=== PATIENT | female | born 1965 | race African-American/Black ===

== ENCOUNTER 2021-03-06 17:40 | Inpatient (IN) | payer BC, OTHER ==
[~2021-03-06] VITALS: Ht 172.7 cm; Wt 87.2 kg
[~2021-03-06 17:40] MED LIST: ALBUTEROL; AMLODIPINE; FLONASE; NAPROXEN; SINGULAIR; VASOTEC; ZYRTEC
[2021-03-06] MEDS ORDERED: METHYLPREDNISOLONE SOD SUCC 125 MG/2 ML VIAL IV STA (17:59)
[2021-03-06] MEDS ORDERED: IPRATROPIUM BROMIDE (0.02%) 0.5MG/2.5ML NEB HHN STA (17:59)
[2021-03-06] MEDS ORDERED: ALBUTEROL (0.083%) 2.5MG/3ML NEB HHN STA (17:59)
[2021-03-06] MEDS ORDERED: MAGNESIUM 2 G PREMIX 50 ML IV STA (17:59)
[2021-03-06] MEDS ORDERED: CEFTRIAXONE 1 G PREMIX 50 ML IV ONE (18:15)
[2021-03-06] MEDS ORDERED: AZITHROMYCIN 500 MG in DEXT 5% WATER 250 ML IV STA (18:15)
[2021-03-06 18:21] LABS: BASOPHILS % 0.5 % (0.0-2.0); EOSINOPHILS % 0.2 % (0.0-5.0); HEMATOCRIT. 28.1 % (36.0-48.0); HEMOGLOBIN. 9.2 g/dL (12.0-16.0); LYMPHOCYTES % 20.9 % (20.0-50.0); MEAN CORPUSCULAR HEMOGLOBIN 30.4 pg (28.0-32.0); MEAN CORPUSCULAR VOLUME 92.9 fL (81.0-99.0); MEAN PLATELET VOLUME 7.9 fl (7.4-10.4); MONOCYTES % 5.7 % (2.0-8.0); NEUTROPHILS % 72.7 % (40.0-76.0); PLATELET 238 x1000/uL (130-400); RED BLOOD CELL COUNT 3.02 mill/uL (4.2-5.4); RED CELL DISTRIBUTION WIDTH 15.7 % (11.6-14.6)
[2021-03-06 18:28] LABS: CHLORIDE 105 mEq/L (98-107)
[2021-03-06 18:32] LABS: D-DIMER 2.05 mg/L FEU (<0.50); PROTHROMBIN TIME 10.9 sec (9.6-11.0)
[2021-03-06] MEDS ORDERED: FUROSEMIDE 20MG/2ML VIAL IVP ONE (19:00)
[2021-03-06 19:31] LABS: BG BASE EXCESS -3.1 mmol/L (-2.0-2.0); BG CARBOXYHEMOGLOBIN 0.3 % (0.5-1.5); BG DEOXYHEMOGLOBIN 1.7 % (0.0-5.0); BG FRACTION INSPIRED OXYGEN 50; BG HCO3 ACT 19.1 mmol/L (22.0-26.0); BG METHEMOGLOBIN 0.2 % (0.0-1.5); BG OXYGEN SATURATION 98.3 % (92.0-98.5); BG OXYHEMOGLOBIN 97.8 % (94.0-97.0); BG PH 7.501 (7.350-7.450); BG TOTAL HEMOGLOBIN 9.5 g/dL (12.0-18.0); BG VENT MODE MASK - BIPAP
[2021-03-06 19:58] LABS: CLARITY URINE CLEAR (CLEAR); COLOR URINE YELLOW (YELLOW); KETONES URINE NEGATIVE (NEGATIVE); LEUKOCYTE ESTERASE URINE NEGATIVE (NEGATIVE); NITRITE URINE NEGATIVE (NEGATIVE); OCCULT BLOOD URINE NEGATIVE (NEGATIVE); PH URINE 5.5 (4.5-8.0); PROTEIN URINE 2+ (NEGATIVE); SPECIFIC GRAVITY URINE 1.015 (1.005-1.030); UROBILINOGEN URINE 0.2 E.U./dL (0.2-1.0)
[2021-03-06 22:19] VITALS: BP 176/49
[2021-03-06 22:30] VITALS: BP 161/91
[2021-03-06 22:31] VITALS: BP 161/91
[2021-03-06] MEDS ORDERED: HYDROCODONE/ACETAMINOPHEN 5/325MG TABLET PO PRN (23:15)
[2021-03-06] MEDS ORDERED: DEXTROSE 50% WATER 50ML SYRINGE IV PRN (23:15)
[2021-03-07] VITALS (9 sets, daily range): BP systolic 148–179; BP diastolic 75–97
[2021-03-07] MEDS: IPRATROPIUM/ALBUTEROL 0.5-3(2.5)MG/3ML NEB HHN SCH ×5 (00:16→21:21)
[2021-03-07] MEDS: CLONIDINE 0.1MG TABLET PO PRN (05:33)
[2021-03-07 05:48] LABS: BASOPHILS % 0.1 % (0.0-2.0); HEMATOCRIT. 27.8 % (36.0-48.0); HEMOGLOBIN. 8.9 g/dL (12.0-16.0); LYMPHOCYTES % 9.1 % (20.0-50.0); MEAN CORPUSCULAR HEMOGLOBIN 30.5 pg (28.0-32.0); MEAN CORPUSCULAR VOLUME 95.2 fL (81.0-99.0); MEAN PLATELET VOLUME 8.6 fl (7.4-10.4); MONOCYTES % 2.4 % (2.0-8.0); NEUTROPHILS % 88.4 % (40.0-76.0); PLATELET 225 x1000/uL (130-400); RED BLOOD CELL COUNT 2.92 mill/uL (4.2-5.4); RED CELL DISTRIBUTION WIDTH 16.1 % (11.6-14.6)
[2021-03-07] MEDS: BLOOD SUGAR DIAGNOSTIC STRIP TEST SCH ×4 (05:49→21:12)
[2021-03-07] MEDS: INSULIN LISPRO 100 UNITS/ML SUBCUT SCH ×4 (06:13→21:11)
[2021-03-07] MEDS ORDERED: CEFTRIAXONE 1 G PREMIX 50 ML IV SCH (07:45)
[2021-03-07] MEDS: ACYCLOVIR 400 MG TABLET PO SCH ×2 (08:42→18:20)
[2021-03-07] MEDS: TACROLIMUS 1MG CAPSULE PO SCH ×2 (08:42→18:23)
[2021-03-07] MEDS: FLUTICASONE PROPIONATE 50MCG/SPRAY BOTTLE BOTHNSTRLS SCH (08:42)
[2021-03-07] MEDS: FAMOTIDINE 20MG TABLET PO SCH ×2 (08:42→21:12)
[2021-03-07] MEDS: MYCOPHENOLATE MOFETIL 500MG TABLET PO SCH ×2 (08:43→21:12)
[2021-03-07] MEDS: FOLIC ACID 1MG TABLET PO SCH (08:43)
[2021-03-07] MEDS: ENOXAPARIN 40MG/0.4ML SYR SUBCUT SCH (08:44)
[2021-03-07] MEDS: PYRIDOXINE HCL 50MG TABLET PO SCH (08:44)
[2021-03-07] MEDS: CETIRIZINE 10MG TABLET PO SCH (08:44)
[2021-03-07] MEDS ORDERED: PREDNISONE 10MG TABLET PO SCH (09:00)
[2021-03-07] MEDS ORDERED: CARVEDILOL 3.125 MG TABLET PO SCH (09:00)
[2021-03-07] MEDS ORDERED: FUROSEMIDE 40MG/4ML VIAL IVP SCH (09:00)
[2021-03-07] MEDS ORDERED: INSULIN GLARGINE UD 100 UNITS/ML SYR SUBCUT SCH (10:00)
[2021-03-07] MEDS: CEFTRIAXONE 1,000 MG in DEXTROSE 5% WATER 50 ML IV SCH (10:30)
[2021-03-07] MEDS ORDERED: LOSARTAN POTASSIUM 50 MG TABLET PO SCH (11:00)
[2021-03-07] MEDS ORDERED: SIRO2TAB MT (11:01)
[2021-03-07] MEDS ORDERED: DIPH1TAB24 MT (11:01)
[2021-03-07] MEDS ORDERED: ENAL10TA19 PO (11:01)
[2021-03-07] MEDS ORDERED: FLUT1BLS3 INH (11:01)
[2021-03-07] MEDS ORDERED: MONT10TA32 MT (11:01)
[2021-03-07] MEDS ORDERED: ONDA8TAB59 PO (11:01)
[2021-03-07] MEDS ORDERED: POTA8TAB4 PO (11:01)
[2021-03-07] MEDS ORDERED: NAPR-681 MT (11:01)
[2021-03-07] MEDS: METHYLPREDNISOLONE SOD SUCC 40 MG/ML VIAL IV SCH ×2 (13:42→21:13)
[2021-03-07] MEDS: ENALAPRIL 5MG TABLET PO SCH (13:43)
[2021-03-07] MEDS: MONTELUKAST SODIUM 10MG TABLET PO SCH (18:20)
[2021-03-07] MEDS ORDERED: DIPHENHYDRAMINE 50MG CAPSULE PO PRN (19:45)
[2021-03-07] MEDS: AZITHROMYCIN 500 MG in DEXT 5% WATER 250 ML IV SCH (20:06)
[2021-03-07] MEDS: CLONIDINE 0.2MG TABLET PO SCH (23:24)
[2021-03-08] VITALS (12 sets, daily range): BP systolic 138–162; BP diastolic 71–95
[2021-03-08] MEDS: IPRATROPIUM/ALBUTEROL 0.5-3(2.5)MG/3ML NEB HHN SCH ×6 (00:43→20:14)
[2021-03-08] MEDS: METHYLPREDNISOLONE SOD SUCC 40 MG/ML VIAL IV SCH ×3 (05:23→21:28)
[2021-03-08] MEDS: CLONIDINE 0.2MG TABLET PO SCH ×3 (05:23→21:29)
[2021-03-08 06:18] LABS: BASOPHILS % 0.2 % (0.0-2.0); HEMATOCRIT. 25.1 % (36.0-48.0); HEMOGLOBIN. 8.2 g/dL (12.0-16.0); LYMPHOCYTES % 8.2 % (20.0-50.0); MEAN CORPUSCULAR HEMOGLOBIN 30.9 pg (28.0-32.0); MEAN CORPUSCULAR VOLUME 95.1 fL (81.0-99.0); MEAN PLATELET VOLUME 8.6 fl (7.4-10.4); MONOCYTES % 3.8 % (2.0-8.0); NEUTROPHILS % 87.8 % (40.0-76.0); PLATELET 219 x1000/uL (130-400); RED BLOOD CELL COUNT 2.64 mill/uL (4.2-5.4); RED CELL DISTRIBUTION WIDTH 15.5 % (11.6-14.6)
[2021-03-08 06:24] LABS: PHOSPHORUS 3.5 mg/dL (2.5-4.9)
[2021-03-08] MEDS: BLOOD SUGAR DIAGNOSTIC STRIP TEST SCH ×4 (07:30→21:27)
[2021-03-08] MEDS: FLUTICASONE PROPIONATE 50MCG/SPRAY BOTTLE BOTHNSTRLS SCH (08:55)
[2021-03-08] MEDS: ENOXAPARIN 40MG/0.4ML SYR SUBCUT SCH (08:57)
[2021-03-08] MEDS: FAMOTIDINE 20MG TABLET PO SCH ×2 (08:58→21:28)
[2021-03-08] MEDS: MYCOPHENOLATE MOFETIL 500MG TABLET PO SCH ×2 (08:58→21:28)
[2021-03-08] MEDS: PYRIDOXINE HCL 50MG TABLET PO SCH (08:58)
[2021-03-08] MEDS: CETIRIZINE 10MG TABLET PO SCH (08:58)
[2021-03-08] MEDS: ENALAPRIL 5MG TABLET PO SCH (08:58)
[2021-03-08] MEDS: CEFTRIAXONE 1,000 MG in DEXTROSE 5% WATER 50 ML IV SCH (08:59)
[2021-03-08] MEDS: FOLIC ACID 1MG TABLET PO SCH (08:59)
[2021-03-08] MEDS: ACYCLOVIR 400 MG TABLET PO SCH ×3 (08:59→17:23)
[2021-03-08] MEDS: INSULIN LISPRO 100 UNITS/ML SUBCUT SCH ×4 (09:01→21:54)
[2021-03-08] MEDS: TACROLIMUS 1MG CAPSULE PO SCH ×2 (09:21→17:23)
[2021-03-08] MEDS: INSULIN GLARGINE UD 100 UNITS/ML SYR SUBCUT SCH (10:57)
[2021-03-08] MEDS: CLONIDINE 0.1MG TABLET PO PRN ×2 (14:30→14:31)
[2021-03-08] MEDS: MONTELUKAST SODIUM 10MG TABLET PO SCH (17:23)
[2021-03-08] MEDS: AZITHROMYCIN 500 MG in DEXT 5% WATER 250 ML IV SCH (21:28)
[2021-03-09] VITALS (12 sets, daily range): BP systolic 134–161; BP diastolic 65–91
[2021-03-09] MEDS: IPRATROPIUM/ALBUTEROL 0.5-3(2.5)MG/3ML NEB HHN SCH ×6 (00:26→21:04)
[2021-03-09] MEDS: METHYLPREDNISOLONE SOD SUCC 40 MG/ML VIAL IV SCH ×2 (05:23→17:35)
[2021-03-09] MEDS: CLONIDINE 0.2MG TABLET PO SCH ×3 (05:24→21:33)
[2021-03-09] MEDS: BLOOD SUGAR DIAGNOSTIC STRIP TEST SCH ×4 (07:30→21:33)
[2021-03-09] MEDS: INSULIN LISPRO 100 UNITS/ML SUBCUT SCH ×4 (08:46→22:03)
[2021-03-09] MEDS: TACROLIMUS 1MG CAPSULE PO SCH ×2 (08:50→17:37)
[2021-03-09] MEDS: FAMOTIDINE 20MG TABLET PO SCH ×2 (08:50→21:33)
[2021-03-09] MEDS: CETIRIZINE 10MG TABLET PO SCH (08:50)
[2021-03-09] MEDS: FOLIC ACID 1MG TABLET PO SCH (08:50)
[2021-03-09] MEDS: MYCOPHENOLATE MOFETIL 500MG TABLET PO SCH ×2 (08:51→21:32)
[2021-03-09] MEDS: PYRIDOXINE HCL 50MG TABLET PO SCH (08:51)
[2021-03-09] MEDS: ACYCLOVIR 400 MG TABLET PO SCH ×3 (08:52→17:37)
[2021-03-09] MEDS: CEFTRIAXONE 1,000 MG in DEXTROSE 5% WATER 50 ML IV SCH (09:20)
[2021-03-09] MEDS: ENOXAPARIN 40MG/0.4ML SYR SUBCUT SCH (09:21)
[2021-03-09] MEDS: FLUTICASONE PROPIONATE 50MCG/SPRAY BOTTLE BOTHNSTRLS SCH (09:21)
[2021-03-09] MEDS: ENALAPRIL 5MG TABLET PO SCH (09:54)
[2021-03-09] MEDS: INSULIN GLARGINE UD 100 UNITS/ML SYR SUBCUT SCH (09:56)
[2021-03-09] MEDS ORDERED: MAGNESIUM HYDROXIDE 400MG/5ML 30ML UDC PO PRN (11:15)
[2021-03-09] MEDS ORDERED: MAGNESIUM HYDROXIDE 400MG/5ML 30ML UDC PO NR (11:15)
[2021-03-09] MEDS ORDERED: INSULIN GLARGINE UD 100 UNITS/ML SYR SUBCUT NR (12:00)
[2021-03-09] MEDS: CLONIDINE 0.1MG TABLET PO PRN ×2 (13:23→16:08)
[2021-03-09] MEDS: SIROLIMUS 1 MG TABLET PO SCH (17:36)
[2021-03-09] MEDS: DOCUSATE SODIUM 100MG CAPSULE PO SCH (17:36)
[2021-03-09] MEDS: MONTELUKAST SODIUM 10MG TABLET PO SCH (17:56)
[2021-03-09] MEDS: AZITHROMYCIN 500 MG in DEXT 5% WATER 250 ML IV SCH (21:32)
[2021-03-10] VITALS (8 sets, daily range): BP systolic 142–168; BP diastolic 72–84
[2021-03-10] MEDS: IPRATROPIUM/ALBUTEROL 0.5-3(2.5)MG/3ML NEB HHN SCH ×3 (00:43→09:15)
[2021-03-10] MEDS: METHYLPREDNISOLONE SOD SUCC 40 MG/ML VIAL IV SCH ×2 (05:55→18:11)
[2021-03-10] MEDS: CLONIDINE 0.2MG TABLET PO SCH ×3 (05:55→20:55)
[2021-03-10 06:43] LABS: HEMATOCRIT. 25.8 % (36.0-48.0); HEMOGLOBIN. 8.5 g/dL (12.0-16.0); MEAN CORPUSCULAR HEMOGLOBIN 31.1 pg (28.0-32.0); MEAN CORPUSCULAR VOLUME 94.2 fL (81.0-99.0); MEAN PLATELET VOLUME 8.4 fl (7.4-10.4); PLATELET 285 x1000/uL (130-400); RED BLOOD CELL COUNT 2.74 mill/uL (4.2-5.4); RED CELL DISTRIBUTION WIDTH 15.3 % (11.6-14.6)
[2021-03-10] MEDS: BLOOD SUGAR DIAGNOSTIC STRIP TEST SCH ×4 (07:30→20:32)
[2021-03-10] MEDS: CEFTRIAXONE 1,000 MG in DEXTROSE 5% WATER 50 ML IV SCH (09:48)
[2021-03-10] MEDS: TACROLIMUS 1MG CAPSULE PO SCH ×2 (09:48→18:12)
[2021-03-10] MEDS: FAMOTIDINE 20MG TABLET PO SCH ×2 (09:49→20:28)
[2021-03-10] MEDS: MYCOPHENOLATE MOFETIL 500MG TABLET PO SCH ×2 (09:49→20:28)
[2021-03-10] MEDS: ACYCLOVIR 400 MG TABLET PO SCH ×3 (09:49→18:11)
[2021-03-10] MEDS: CETIRIZINE 10MG TABLET PO SCH (09:49)
[2021-03-10] MEDS: PYRIDOXINE HCL 50MG TABLET PO SCH (09:49)
[2021-03-10] MEDS: FOLIC ACID 1MG TABLET PO SCH (09:49)
[2021-03-10] MEDS: DOCUSATE SODIUM 100MG CAPSULE PO SCH ×2 (09:50→18:11)
[2021-03-10] MEDS: ENOXAPARIN 40MG/0.4ML SYR SUBCUT SCH (09:51)
[2021-03-10] MEDS: INSULIN LISPRO 100 UNITS/ML SUBCUT SCH ×4 (09:55→20:31)
[2021-03-10] MEDS ORDERED: INSULIN GLARGINE UD 100 UNITS/ML SYR SUBCUT SCH (10:00)
[2021-03-10] MEDS ORDERED: INSULIN GLARGINE UD 100 UNITS/ML SYR SUBCUT NR ×2 (10:30→11:45)
[2021-03-10] MEDS ORDERED: METFORMIN HCL 500MG TABLET PO NR (11:15)
[2021-03-10] MEDS ORDERED: FLUTICASONE PROPIONATE 50MCG/SPRAY BOTTLE BOTHNSTRLS SCH (11:15)
[2021-03-10] MEDS: POTASSIUM CHLORIDE 20MEQ TABLET SR PO SCH ×2 (11:35→15:23)
[2021-03-10] MEDS: MONTELUKAST SODIUM 10MG TABLET PO SCH (11:36)
[2021-03-10] MEDS: ENALAPRIL 5MG TABLET PO SCH (11:51)
[2021-03-10 12:00] LABS: NUCLEATED RED BLOOD CELLS 6 /100 WBC; PLATELET ESTIMATE NORMAL
[2021-03-10] MEDS: IPRATROPIUM/ALBUTEROL 0.5-3(2.5)MG/3ML NEB HHN PRN ×2 (12:37→16:08)
[2021-03-10] MEDS: TRELEGY ELLIPTA ORI SCH (13:20)
[2021-03-10] MEDS: FLUTICASONE PROPIONATE 50MCG/SPRAY BOTTLE BOTHNSTRLS SCH (13:20)
[2021-03-10] MEDS: METFORMIN HCL 500MG TABLET PO SCH (18:11)
[2021-03-10] MEDS: SIROLIMUS 1 MG TABLET PO SCH (18:13)
[2021-03-10] MEDS: AZITHROMYCIN 500 MG in DEXT 5% WATER 250 ML IV SCH (20:29)
[2021-03-11] VITALS: BP 153/66
[2021-03-11 04:00] VITALS: BP 158/85
[2021-03-11] MEDS: METHYLPREDNISOLONE SOD SUCC 40 MG/ML VIAL IV SCH (05:58)
[2021-03-11] MEDS: CLONIDINE 0.2MG TABLET PO SCH ×2 (05:58→13:09)
[2021-03-11] MEDS: BLOOD SUGAR DIAGNOSTIC STRIP TEST SCH ×2 (07:03→12:31)
[2021-03-11] MEDS: INSULIN LISPRO 100 UNITS/ML SUBCUT SCH ×2 (07:05→13:09)
[2021-03-11 08:00] VITALS: BP 180/90
[2021-03-11] MEDS: ENOXAPARIN 40MG/0.4ML SYR SUBCUT SCH (08:10)
[2021-03-11] MEDS: CEFTRIAXONE 1,000 MG in DEXTROSE 5% WATER 50 ML IV SCH (08:11)
[2021-03-11] MEDS: IPRATROPIUM/ALBUTEROL 0.5-3(2.5)MG/3ML NEB HHN PRN ×2 (08:11→12:03)
[2021-03-11] MEDS: DOCUSATE SODIUM 100MG CAPSULE PO SCH (08:12)
[2021-03-11] MEDS: METFORMIN HCL 500MG TABLET PO SCH (08:12)
[2021-03-11] MEDS: CETIRIZINE 10MG TABLET PO SCH (08:13)
[2021-03-11] MEDS: FOLIC ACID 1MG TABLET PO SCH (08:13)
[2021-03-11] MEDS: TACROLIMUS 1MG CAPSULE PO SCH (08:13)
[2021-03-11] MEDS: PYRIDOXINE HCL 50MG TABLET PO SCH (08:13)
[2021-03-11] MEDS: FAMOTIDINE 20MG TABLET PO SCH (08:13)
[2021-03-11] MEDS: ACYCLOVIR 400 MG TABLET PO SCH ×2 (08:14→13:09)
[2021-03-11] MEDS: MYCOPHENOLATE MOFETIL 500MG TABLET PO SCH (08:14)
[2021-03-11] MEDS: MONTELUKAST SODIUM 10MG TABLET PO SCH (08:15)
[2021-03-11] MEDS: TRELEGY ELLIPTA ORI SCH (08:16)
[2021-03-11] MEDS: FLUTICASONE PROPIONATE 50MCG/SPRAY BOTTLE BOTHNSTRLS SCH (08:17)
[2021-03-11] MEDS: ENALAPRIL 5MG TABLET PO SCH (08:30)
[2021-03-11] MEDS ORDERED: PREDNISONE 20MG TABLET PO SCH (09:00)
[2021-03-11] MEDS ORDERED: INSULIN GLARGINE UD 100 UNITS/ML SYR SUBCUT SCH (10:00)
[2021-03-11 12:00] VITALS: BP 162/79
[2021-03-11 14:19] VITALS: BP 152/84
== END 2021-03-11 16:34 | disposition home or self-care (01) | DRG 871 ==
LOC: ER 17:40 → 5EST 19:08 → EDBEDREQTM 19:15 → EDBEDREQ 19:15 → ENRESERV 21:33
PROVIDERS: ADMIT Internal Medicine; ATTEND Internal Medicine Pulmonary Disease
PROC: 5A09357 Assistance with Respiratory Ventilation, Less than 24 Consecutive Hours, Continuous Positive Airway Pressure (ICD-10-PCS; principal; 2021-03-06)
DX: A41.9 Sepsis, unspecified organism (principal); J96.01 Acute respiratory failure with hypoxia; J18.9 Pneumonia, unspecified organism; C92.00 Acute myeloblastic leukemia, not having achieved remission; E44.1 Mild protein-calorie malnutrition; E87.1 Hypo-osmolality and hyponatremia; J45.901 Unspecified asthma with (acute) exacerbation; Z94.81 Bone marrow transplant status; E66.9 Obesity, unspecified; N18.9 Chronic kidney disease, unspecified; E11.22 Type 2 diabetes mellitus with diabetic chronic kidney disease; C50.919 Malignant neoplasm of unspecified site of unspecified female breast; D63.1 Anemia in chronic kidney disease; E78.5 Hyperlipidemia, unspecified; F17.210 Nicotine dependence, cigarettes, uncomplicated; K59.09 Other constipation; I12.9 Hypertensive chronic kidney disease with stage 1 through stage 4 chronic kidney disease, or unspecified chronic kidney disease; T38.0X5A Adverse effect of glucocorticoids and synthetic analogues, initial encounter; K58.1 Irritable bowel syndrome with constipation; E89.0 Postprocedural hypothyroidism; D47.2 Monoclonal gammopathy; Z80.0 Family history of malignant neoplasm of digestive organs; Z82.49 Family history of ischemic heart disease and other diseases of the circulatory system; Z83.3 Family history of diabetes mellitus; Z90.710 Acquired absence of both cervix and uterus; Z88.6 Allergy status to analgesic agent; Z88.2 Allergy status to sulfonamides; Y92.89 Other specified places as the place of occurrence of the external cause; Z88.8 Allergy status to other drugs, medicaments and biological substances; Z68.29 Body mass index [BMI] 29.0-29.9, adult
CPT/HCPCS: 36415; 36600; 71045; 78580; 80048; 80053; 80061; 80197; 81003; 82375; 82805; 82962; 83036; 83605; 83735; 83880; 84100; 84145; 84484; 85025; 85379; 93005; 93306; 94640; 94660; 97116; 97162; 99291; J0456; J0696; J1650; J1815; J1940; J2920; J2930; J3475; J7060; J7507; J7512; J7517; Q0163